=== PATIENT | male | born 1945 | race Caucasian/White ===

== ENCOUNTER 2016-07-12 21:12 | Emergency (ER) | payer MEDICARE, OTHER ==
[~2016-07-12] VITALS: Ht 182.9 cm; Wt 110.9 kg
[2016-07-12 21:35] VITALS: BP 143/74; PULSE 83; RESP 16; O2SAT 95
--- NOTE | 2016-07-12 23:34 | ED.REPORT ---
HPI-General Illness Date of Service July 12, 2016 ED Provider: Deonte Chairez MD The patient is a 70 year old male w/ a hx of HTN and a-fib who presents to the ED accompanied by his due to left leg swelling onset yesterday. He had some mild unexplained knee pain possibly from a minimal twist or positional injury. There was no other injury or trauma that caused his symptoms. He denies nausea, vomiting, SOB, chest pain, and diaphoresis. He is on warfarin for A. fib, propafenone, and lisinopril. Nursing Notes Stated Complaint: LEG AND ANKLE SWELLING Chief Complaint: Extremity Trauma Nursing Notes Reviewed: Yes Allergies: Coded Allergies: caffeine (Verified Adverse Reaction, Unknown, Headache, 07/12/16) General Time Seen by MD: 23:34 Chief Complaint Other (lower left leg swelling ) Arrived By: Walk-in Sudden in Onset?: Yes Onset Occurred: Yesterday Symptom Duration: Since onset Location: : Leg left Radiation: : Does not radiate Recent Healthcare: No recent doctor visit, No recent hospitalization Similar Sx Previous: No Past Medical History Past Medical History HTN Atrial fibrillation Past Surgical History back surgery Smoking History Unknown if Ever Smoker Social History Other Social History: Good social support, , Local resident Ambulatory Status Independent Review of Systems Full Review of Systems Respiratory: Denies: Shortness of breath Cardiovascular: Denies: Chest pain GI: Denies: Nausea, Vomiting Musculoskeletal: Reports: Extremity swelling (lower left leg swelling) Hematologic: Denies Bruising, Denies Petechiae Skin: Denies Bruising, Denies Diaphoresis Complete sys rev & neg: except as marked. Physical Exam Vital Signs Vital Signs Date Time Temp Pulse Resp B/P Pulse Ox O2 Delivery O2 Flow Rate FiO2 07/12/16 21:35 36.4 83 16 143/74 95 Initial VS: Reviewed Head / Eyes: Atraumatic, Normocephalic ENT: Mucous membranes moist, Conjunctiva normal Neck: Supple, Non-tender Respiratory: Breath sounds normal, Clear to auscultation, No respiratory distress Cardiovascular: Regular rate & rhythm, Heart sounds normal, Intact distal pulses Abdomen / GI: Soft, Non-tender, No guarding, No rebound Back: No CVA tenderness Neurologic: Alert, Oriented General/Constitutional: Awake, Alert, Cooperative, Not toxic appearing Right Leg / Calf: Positive: Swelling present... (Moderate) Interpretation & Diagnostics Lab Results Interpretation Result Diagram: 07/13/16 0032 07/13/16 0032 Test 07/13/16 00:32 White Blood Count 7.6th/mm3 (3.8-10.1) Red Blood Count 5.14mil/mm3 (4.40-5.80) Hemoglobin 15.8g/dL (13.8-17.2) Hematocrit 46.1% (41.0-50.0) Mean Corpuscular Volume 89.7fL (81-100) Mean Corpuscular Hemoglobin 30.7pg (27.0-35.0) Mean Corpuscular Hemoglobin Concent 34.3% (32.0-37.0) Red Cell Distribution Width 14.2% (12.3-15.4) Platelet Count 203bil/L (150-400) Neutrophils (%) (Auto) 59.1% (40-74) Lymphocytes (%) (Auto) 25.8% (14-46) Monocytes (%) (Auto) 10.3% (4-12) Eosinophils (%) (Auto) 3.7% (0-5) Basophils (%) (Auto) 0.8% (0-3) Prothrombin Time 23.1sec (8.1-12.5) Prothromb Time International Ratio 2.13ratio Sodium Level 140mEq/L (134-144) Potassium Level 4.3mEq/L (3.5-5.2) Chloride Level 101mEq/L (97-108) Carbon Dioxide Level 22mmol/L (18-29) Blood Urea Nitrogen 27mg/dL (8-27) Creatinine 0.93mg/dL (0.76-1.27) Estimat Glomerular Filtration Rate 86mL/min (>59) Glucose Level 109mg/dL (60-99) Calcium Level 9.3mg/dL (8.5-10.1) Total Bilirubin 0.3mg/dL (0.0-1.2) Aspartate Amino Transf (AST/SGOT) 24U/L (0-50) Alanine Aminotransferase (ALT/SGPT) 31U/L (0-44) Alkaline Phosphatase 64U/L (25-160) Total Protein 7.1g/dL (6.4-8.4) Albumin 4.2g/dL (3.4-5.0) Hold Serrano Top Tube Received (Received) US Focused Lower Ext Venous Impression: No evidence of DVT on left lower extremity venous ultrasound. Radiologist: Oumou Gutierres M.D. Exam Performed by: Radiologist Exam Interpreted by: ED physician Re-Eval/Medical Decision Med Decision/Clinical Course 70-year-old presents with swelling of the left leg after which revealed twisting injury to his knee. Concern is for DVT, which is not found on ultrasound. He is adequately anticoagulated and has been for the long-term. No indication of proximal cords or other dangerous signs. Suspect this is a result of immobility and lymph congestion from his minor injury. Discharge in stable condition for follow-up with PCP. Compression hose recommended. Time of Eval: 02:34 Re-Evaluation/Progress Note: Pt rechecked. Informed of normal US results and plan of treatment. No evidence of DVT in US. F/U and RTER warnings given. Pt understands and agrees with plan. All questions addressed. Counseled Regarding: Diagnosis, Lab results, Need for follow-up, When/why to return to ED Discharge & Departure Primary Impression: Peripheral edema Disposition: Home Discharge Condition All VS Reviewed: Yes Condition: Stable Additional Instructions: There is no evidence of clot on your ultrasound. You are adequately anticoagulated with an INR of 2.13 The source of your leg edema today is not clear The irritation in your knee may have produced some obstruction to lymph flow, and resulting edema Follow-up with your doctor in the office Continue your Coumadin Elevation leg whenever possible Where an above the calf compression style stocking when up. Return if any immediate issues Referrals: Andreas Marquez MD (PCP) Marisel Attestation Portion of this note were transcribed by Tabitha Marques. I, Dr. Deonte Chairez, personally performed the history, physical exam, and medical decision- making: I reviewed and confirmed the accuracy for the information in the transcribed note. Signed by: marisel Spence, 07/13/16 0100 copies to: Andreas Marquez MD, Christopher W MD July 12, 2016 23:34 Tabitha Marques July 13, 2016 00:17
[2016-07-13 00:46] LABS: BASOPHILS % (AUTO) 0.8 % (0-3); EOSINOPHILS % (AUTO) 3.7 % (0-5); MONOCYTES % (AUTO) 10.3 % (4-12); Mean Corpuscular Hemoglobin 30.7 pg (27.0-35.0); Mean Corpuscular Volume 89.7 fL (81-100); NEUTROPHILS % (AUTO) 59.1 % (40-74); Platelet Count 203 bil/L (150-400)
[2016-07-13 01:02] LABS: INR 2.13 ratio
--- NOTE | 2016-07-14 09:38 | DRSVH ---
PROCEDURE: US VEINOUS LEG DUPLEX UNILATERAL, LEFT INDICATIONS: left leg edema without trauma TECHNIQUE: Real-time imaging, as well as color and pulse Doppler interrogation, were performed of the lower extr emity deep veins from the inguinal ligament to the popliteal fossa. COMPARISON: None. FINDINGS: The deep veins are normally compressible, and free of intraluminal thrombus. Color and pu lse Doppler demonstrate normal phasic intraluminal flow. There is normal augmentation response to di stal compression maneuver. IMPRESSION: No deep venous thrombus in the left lower extremity. Dictated by: Matthew Triplett M.D. on 07/13/2016 at 8:10 Approved by: Matthew Triplett M.D. on 07/13/2016 at 8:10
== END 2016-07-13 02:41 | disposition home or self-care (01) ==
LOC: SED 21:12
DX: R60.0 Localized edema (principal); I11.9 Hypertensive heart disease without heart failure; I48.91 Unspecified atrial fibrillation; Z88.8 Allergy status to other drugs, medicaments and biological substances